=== PATIENT | male | born 1950 ===

== ENCOUNTER 2017-07-04 08:47 | Emergency (ER) | payer MEDICARE, OTHER ==
--- NOTE | 2017-07-04 11:08 | C.PDOC ---
History Of Present Illness 66-year-old male, presents to the emergency department with complaints of two- week duration of diffuse body aches, generalized weakness, subjective fevers and epigastric abdominal pain, associated with mild nausea. Patient denies any vomiting, chest pain, back pain, symptoms, dizziness, shortness of breath, back pain, or any other associated symptoms. Time Seen by Provider: 07/04/17 10:18 Chief Complaint (Nursing): Abdominal Pain History Per: Patient History/Exam Limitations: no limitations Onset/Duration Of Symptoms: Days Current Symptoms Are (Timing): Still Present Severity: Moderate Past Medical History Reviewed: Historical Data, Nursing Documentation, Vital Signs Vital Signs: Last Vital Signs Temp 97.9 F 07/04/17 09:07 Pulse 60 07/04/17 09:07 Resp 16 07/04/17 09:07 BP 114/71 07/04/17 09:07 Pulse Ox 98 07/04/17 13:13 Surgical History: Hernia Repair - [facility] Procedures TETANUS TOXOID ADMINIST (01/17/14) Family History: States: No Known Family Hx - Social History Hx Alcohol Use: No Hx Substance Use: No - Immunization History Hx Tetanus Toxoid Vaccination: Yes Hx Influenza Vaccination: No Review Of Systems Except As Marked, All Systems Reviewed And Found Negative. Constitutional: Positive for: Fever, Malaise. Negative for: Chills ENT: Negative for: Throat Pain Cardiovascular: Negative for: Chest Pain Respiratory: Negative for: Shortness of Breath Gastrointestinal: Positive for: Nausea, Abdominal Pain. Negative for: Vomiting Musculoskeletal: Negative for: Neck Pain, Back Pain Skin: Negative for: Rash Neurological: Negative for: Weakness, Numbness, Headache, Dizziness Physical Exam - Physical Exam Appears: Well, Non-toxic, No Acute Distress Skin: Normal Color, Warm, Dry, No Rash Head: Normacephalic Eye(s): bilateral: PERRL Nose: Normal Oral Mucosa: Moist Lips: Normal Appearing Neck: Normal ROM, Supple, Other ((-)meningeal sign) Chest: Symmetrical Cardiovascular: Rhythm Regular, No Murmur Respiratory: Normal Breath Sounds, No Decreased Breath Sounds, No Accessory Muscle Use, No Rales, No Rhonchi, No Wheezing Gastrointestinal/Abdominal: Soft, No Tenderness, No Guarding Extremity: Normal ROM, No Deformity, No Swelling Neurological/Psych: Oriented x3, Normal Speech ED Course And Treatment - Laboratory Results Result Diagrams: 07/04/17 11:16 07/04/17 11:16 O2 Sat by Pulse Oximetry: 98 (RA) Pulse Ox Interpretation: Normal - Other Rad CXR X-Ray: Viewed By Me, Read By Radiologist Interpretation: HISTORY: chest pain. COMPARISON: None available. TECHNIQUE: Chest PA and lateral. FINDINGS: LUNGS: Subtle hazy opacity at the medial right middle lobe, possibly atelectasis or infiltrate. Please note that chest x -ray has limited sensitivity for the detection of pulmonary masses. PLEURA: No significant pleural effusion identified. No definite pneumothorax . CARDIOVASCULAR: Heart size appears within normal limits. OSSEOUS STRUCTURES: No acute osseous abnormality identified. VISUALIZED UPPER ABDOMEN: Unremarkable. OTHER FINDINGS: None. IMPRESSION: Subtle hazy opacity at the medial right middle lobe, possibly atelectasis or infiltrate. Disposition - Disposition Referrals: [facility] [Outside] Disposition: HOME/ ROUTINE Disposition Time: 13:13 Condition: GOOD Additional Instructions: Follow up with the medical doctor/clinic 1-2 days. Return if worsened. Prescriptions: Azithromycin [Zithromax] 250 mg PO DAILY #6 tab Ibuprofen [Motrin] 600 mg PO TID #21 tab Instructions: Viral Syndrome (ED) Forms: [employer] (Monegasque) Print Language: SCOTTISH - POA Present On Arrival: None - Clinical Impression Clinical Impression: Influenza-like illness, Viral pneumonia - Scribe Statement The provider has reviewed the documentation as recorded by the Scribe (Jonathan Birmingham) All medical record entries made by the Scribe were at my direction and personally dictated by me. I have reviewed the chart and agree that the record accurately reflects my personal performance of the history, physical exam, medical decision making, and the department course for this patient. I have also personally directed, reviewed, and agree with the discharge instructions and disposition.
[2017-07-04 11:27] LABS: BASO % 0.6 % (0.0-2.0); EOS % 0.1 % (0.0-4.0); HEMOGLOBIN 14.3 g/dL (12.0-18.0); LYMPH # 4.4 K/uL (1.0-4.3); LYMPH % 78.5 % (20.0-40.0); MEAN CORPUSCULAR HEMOGLOBIN 28.9 pg (27.0-31.0); MEAN CORPUSCULAR HGB CONC 33.2 g/dL (33.0-37.0); MEAN PLATELET VOLUME 7.4 fL (7.2-11.7); MONO # 0.5 K/uL (0.0-0.8); MONO % 8.3 % (0.0-10.0); NEUT # 0.7 K/uL (1.8-7.0); NEUT % 12.5 % (50.0-75.0); NRBC % 0.3 % (0.0-2.0); PLATELET COUNT 272 K/uL (130-400); RBC 4.94 Mil/uL (4.40-5.90); RED CELL DISTRIBUTION WIDTH 14.8 % (11.5-14.5); WHITE BLOOD COUNT 5.6 K/uL (4.8-10.8)
--- NOTE | 2017-07-04 11:28 | RAD ---
HISTORY: chest pain COMPARISON: None available. TECHNIQUE: Chest PA and lateral FINDINGS: LUNGS: Subtle hazy opacity at the medial right middle lobe, possibly atelectasis or infiltrate. Please note that chest x-ray has limited sensitivity for the detection of pulmonary masses. PLEURA: No significant pleural effusion identified. No definite pneumothorax . CARDIOVASCULAR: Heart size appears within normal limits. OSSEOUS STRUCTURES: No acute osseous abnormality identified. VISUALIZED UPPER ABDOMEN: Unremarkable. OTHER FINDINGS: None. IMPRESSION: Subtle hazy opacity at the medial right middle lobe, possibly atelectasis or infiltrate.
[2017-07-04 11:34] LABS: ALBUMIN 3.9 g/dL (3.5-5.0); ALT/SGPT 46 U/L (21-72); AST/SGOT 43 U/L (17-59); BLOOD UREA NITROGEN 11 mg/dL (9-20); CALCIUM 8.7 mg/dl (8.6-10.4); GFR AFRICAN-AMERICAN > 60; GFR NON-AFRICAN AMERICAN > 60
[2017-07-04 11:45] LABS: B-TYPE NATRIURETIC PEPTIDE 62.2 pg/mL (0-900)
[2017-07-04 12:14] LABS: LYMPHOCYTE 78 % (20-40); MONOCYTE 10 % (0-10); NEUTROPHIL 10 % (50-75); PLATELET ESTIMATE NORMAL (NORMAL); REACTIVE LYMPHOCYTES 2 % (0-0); TOTAL CELLS COUNTED 100
[2017-07-04 13:44] VITALS: BP 111/68; RESP 20; TEMP 98.1; O2SAT 99
[2017-07-04 13:52] VITALS: PULSE 51
--- NOTE | 2017-07-06 16:34 | CARD ---
APPROVED REPORT EKG Measurement Heart [id number] <Conclusion> Sinus bradycardia Otherwise normal ECG
== END 2017-07-04 13:53 | disposition home or self-care (01) ==
LOC: C.ER 08:47
DX: J11.08 Influenza due to unidentified influenza virus with specified pneumonia (principal); J12.9 Viral pneumonia, unspecified